=== PATIENT | female | born 1930 | race African-American/Black ===

== ENCOUNTER 2018-12-27 09:39 | Inpatient (IN) ==
[2018-12-27] MEDS ORDERED: ALBUTEROL 2.5 MG/3 ML NEB RESP TX STA (10:01)
[2018-12-27] MEDS ORDERED: SODIUM CHLORIDE 0.9% 500 ML IV STA (10:01)
[2018-12-27] MEDS ORDERED: PIPERACILLIN/TAZOBACTAM 3,375 MG in SODIUM CHLORIDE 0.9% 100 ML IV STA (10:18)
[2018-12-27 10:25] LABS: Basophils % 0.2 % (0.0-0.8); Eosinophils % 0.2 % (0.00-10.9); Hematocrit 39.3 VOL% (35.7-47.0); Hemoglobin 11.2 GM/DL (12.0-16.0); Immature Granulocytes % 0.3 %; Immature Granulocytes Absolute 0.03 #; Lymphocytes # 0.6 10*3/uL (1.4-4.0); Mean Corpuscular HGB Conc 28.5 GM/DL (32-36); Mean Corpuscular Volume 90.6 FL (87-102); Mean Platelet Volume 11.3 FL (9.6-12.0); Monocytes % 7.5 % (1.7-12.7); Neutrophils % 85.8 % (38.7-73.9); Platelet Count 160 T/CUMM (130-400); Red Blood Count 4.34 MC/CUMM (3.8-5.5); Red Cell Distribution Width 17.1 % (9.3-17.3); White Blood Count 9.9 T/CUMM (4-12)
[2018-12-27 10:35] LABS: INR 1.1; Partial Thromboplastin Time 28.3 SECS (0-40)
[2018-12-27 10:40] LABS: Hypochromasia 1+; Microcytosis 1+; Ovalocytes Slight
[2018-12-27 10:41] LABS: Platelet Estimate Adequate
[2018-12-27 10:42] LABS: Amorphous Crystals,Urine Occasional /HPF (Few); Apearance,Urine Slightly Hazy (Clear); Bilirubin,Urine Negative (Negative); Blood, Urine Negative (Negative); Glucose,Urine (UA) Negative (Negative); Hyaline Casts,Urine 6 /LPF (0-3); Ketones,Urine Negative (Negative); Nitrite,Urine Negative (Negative); Protein,Urine >=500 MG/DL; Squamous Epithelial Cell,Urine Occasional /HPF (0-10); Urine Color Yellow (Yellow); Urine Specific Gravity 1.015 (1.001-1.035); Urine Urobilinogen < 2.0 EU/DL (0.2-1.0); WBC,Urine 1 /HPF (0-6)
[2018-12-27 10:46] LABS: Albumin 3.7 G/DL (3.4-5.0); Bilirubin,Total 0.7 MG/DL (0.2-1.0); Calcium 8.8 MG/DL (8.5-10.1); Osmolality,Calculated 285.8 MOS/KG (273-304); Total Protein 7.4 G/DL (6.4-8.3)
[2018-12-27] MEDS ORDERED: ACETAMINOPHEN 325 MG TABLET PO PRN (12:15)
[2018-12-27] MEDS ORDERED: guaiFENesin/DM ER 600-30 MG TABLET PO PRN (12:15)
[2018-12-27] MEDS ORDERED: ONDANSETRON 4 MG/2 ML VIAL IV PRN (12:15)
[2018-12-27 13:33] LABS: Risk Ratio 1.51; Thyroid Stimulating Hormone 1.46 uIU/ml (0.358-3.74); VLDL CHOLESTEROL 9.8 MG/DL
[2018-12-27] MEDS: MELATONIN 3 MG TABLET PO SCH (21:21)
[2018-12-27] MEDS: traZODone 50 MG TABLET PO SCH (21:22)
[2018-12-27] MEDS: ROSUVASTATIN 10 MG TABLET PO SCH (21:22)
[2018-12-27] MEDS: APIXABAN 5 MG TABLET PO SCH (21:22)
[2018-12-27] MEDS: DONEPEZIL 10 MG TABLET PO SCH (21:22)
[2018-12-27] MEDS: PIPERACILLIN/TAZOBACTAM 3,375 MG in SODIUM CHLORIDE 0.9% 100 ML IV SCH (22:16)
[2018-12-27] MEDS: DOCUSATE SODIUM 100 MG CAPSULE PO SCH (22:17)
[2018-12-27] MEDS: CARVEDILOL 6.25 MG TABLET PO SCH (22:17)
[2018-12-28] MEDS: PIPERACILLIN/TAZOBACTAM 3,375 MG in SODIUM CHLORIDE 0.9% 100 ML IV SCH ×3 (05:03→21:02)
[2018-12-28 05:50] LABS: Basophils % 0.3 % (0.0-0.8); Eosinophils # 0.1 10*3/uL (0.0-0.87); Hematocrit 34.2 VOL% (35.7-47.0); Immature Granulocytes % 0.3 %; Immature Granulocytes Absolute 0.02 #; Lymphocytes # 0.5 10*3/uL (1.4-4.0); Lymphocytes % 7.5 % (21.3-54.2); Mean Corpuscular HGB Conc 28.7 GM/DL (32-36); Mean Corpuscular Volume 90.2 FL (87-102); Mean Platelet Volume 10.4 FL (9.6-12.0); Monocytes % 5.6 % (1.7-12.7); Neutrophils % 85.3 % (38.7-73.9); Platelet Count 119 T/CUMM (130-400); Red Blood Count 3.79 MC/CUMM (3.8-5.5); Red Cell Distribution Width 16.9 % (9.3-17.3)
[2018-12-28 06:18] LABS: Albumin 2.9 G/DL (3.4-5.0); Calcium 8.5 MG/DL (8.5-10.1); Osmolality,Calculated 287.6 MOS/KG (273-304); Total Protein 6.6 G/DL (6.4-8.3)
[2018-12-28 06:25] LABS: Hemoglobin 9.8 GM/DL (12.0-16.0)
[2018-12-28 06:26] LABS: Hypochromasia 1+
[2018-12-28 06:27] LABS: Microcytosis Slight; Platelet Estimate Decreased
[2018-12-28] MEDS: amLODIPine 10 MG TABLET PO SCH (08:56)
[2018-12-28] MEDS: PANTOPRAZOLE 40 MG TABLET PO SCH (08:56)
[2018-12-28] MEDS: SERTRALINE 50 MG TABLET PO SCH (08:56)
[2018-12-28] MEDS: DOCUSATE SODIUM 100 MG CAPSULE PO SCH ×2 (08:56→21:59)
[2018-12-28] MEDS: APIXABAN 5 MG TABLET PO SCH ×2 (08:56→21:59)
[2018-12-28] MEDS: CARVEDILOL 6.25 MG TABLET PO SCH ×2 (08:56→21:59)
[2018-12-28] MEDS: FUROSEMIDE 20 MG TABLET PO SCH ×2 (08:56→17:19)
[2018-12-28] MEDS: POLYETHYLENE GLYCOL POWDER 17 GM PACK PO SCH (08:56)
[2018-12-28] MEDS: hydrALAZINE 20 MG/1 ML VIAL IV PRN (17:19)
[2018-12-28] MEDS: MELATONIN 3 MG TABLET PO SCH (21:58)
[2018-12-28] MEDS: ROSUVASTATIN 10 MG TABLET PO SCH (21:59)
[2018-12-28] MEDS: DONEPEZIL 10 MG TABLET PO SCH (21:59)
[2018-12-28] MEDS: traZODone 50 MG TABLET PO SCH (21:59)
[2018-12-29] MEDS: PIPERACILLIN/TAZOBACTAM 3,375 MG in SODIUM CHLORIDE 0.9% 100 ML IV SCH ×3 (04:24→22:46)
[2018-12-29 05:50] LABS: Basophils % 0.4 % (0.0-0.8); Eosinophils % 0.6 % (0.00-10.9); Hematocrit 34.1 VOL% (35.7-47.0); Hemoglobin 9.9 GM/DL (12.0-16.0); Immature Granulocytes % 0.4 %; Immature Granulocytes Absolute 0.02 #; Lymphocytes # 0.5 10*3/uL (1.4-4.0); Lymphocytes % 9.4 % (21.3-54.2); Mean Corpuscular Volume 89.5 FL (87-102); Mean Platelet Volume 11.7 FL (9.6-12.0); Monocytes % 8.3 % (1.7-12.7); Neutrophils % 80.9 % (38.7-73.9); Platelet Count 142 T/CUMM (130-400); Red Blood Count 3.81 MC/CUMM (3.8-5.5); Red Cell Distribution Width 16.6 % (9.3-17.3); White Blood Count 5.3 T/CUMM (4-12)
[2018-12-29 06:14] LABS: Albumin 2.8 G/DL (3.4-5.0); Bilirubin,Total 0.8 MG/DL (0.2-1.0); Calcium 8.8 MG/DL (8.5-10.1); Osmolality,Calculated 283.8 MOS/KG (273-304); Total Protein 6.7 G/DL (6.4-8.3)
[2018-12-29] MEDS: DOCUSATE SODIUM 100 MG CAPSULE PO SCH ×3 (09:35→22:54)
[2018-12-29] MEDS: POLYETHYLENE GLYCOL POWDER 17 GM PACK PO SCH (09:35)
[2018-12-29] MEDS: amLODIPine 10 MG TABLET PO SCH (09:37)
[2018-12-29] MEDS: FUROSEMIDE 20 MG TABLET PO SCH ×2 (09:37→16:28)
[2018-12-29] MEDS: APIXABAN 5 MG TABLET PO SCH ×2 (09:38→22:45)
[2018-12-29] MEDS: SERTRALINE 50 MG TABLET PO SCH (09:38)
[2018-12-29] MEDS: PANTOPRAZOLE 40 MG TABLET PO SCH (09:38)
[2018-12-29] MEDS: CARVEDILOL 6.25 MG TABLET PO SCH ×2 (09:38→22:44)
[2018-12-29] MEDS ORDERED: AZITHROMYCIN 250 MG TABLET PO ONE (15:51)
[2018-12-29] MEDS: DONEPEZIL 10 MG TABLET PO SCH (22:44)
[2018-12-29] MEDS: traZODone 50 MG TABLET PO SCH (22:44)
[2018-12-29] MEDS: ROSUVASTATIN 10 MG TABLET PO SCH (22:44)
[2018-12-29] MEDS: MELATONIN 3 MG TABLET PO SCH (22:45)
[2018-12-30] MEDS: hydrALAZINE 20 MG/1 ML VIAL IV PRN (04:16)
[2018-12-30] MEDS: PIPERACILLIN/TAZOBACTAM 3,375 MG in SODIUM CHLORIDE 0.9% 100 ML IV SCH ×3 (04:16→20:56)
[2018-12-30 07:20] LABS: Albumin 2.8 G/DL (3.4-5.0); Calcium 8.4 MG/DL (8.5-10.1); Total Protein 6.8 G/DL (6.4-8.3)
[2018-12-30 07:24] LABS: Basophils % 0.7 % (0.0-0.8); Eosinophils % 0.9 % (0.00-10.9); Hematocrit 36.8 VOL% (35.7-47.0); Immature Granulocytes % 0.4 %; Immature Granulocytes Absolute 0.02 #; Lymphocytes # 0.7 10*3/uL (1.4-4.0); Lymphocytes % 15.3 % (21.3-54.2); Mean Corpuscular HGB Conc 29.9 GM/DL (32-36); Mean Platelet Volume 11.3 FL (9.6-12.0); Monocytes % 9.8 % (1.7-12.7); Neutrophils % 72.9 % (38.7-73.9); Platelet Count 153 T/CUMM (130-400); Red Blood Count 4.18 MC/CUMM (3.8-5.5); Red Cell Distribution Width 16.1 % (9.3-17.3); White Blood Count 4.6 T/CUMM (4-12)
[2018-12-30 09:39] LABS: Albumin 2.8 G/DL (3.4-5.0); Bilirubin,Total 0.7 MG/DL (0.2-1.0); Calcium 8.5 MG/DL (8.5-10.1); Osmolality,Calculated 286.7 MOS/KG (273-304); Total Protein 6.7 G/DL (6.4-8.3)
[2018-12-30 09:49] LABS: Basophils % 0.4 % (0.0-0.8); Eosinophils % 0.7 % (0.00-10.9); Hematocrit 36.2 VOL% (35.7-47.0); Hemoglobin 10.7 GM/DL (12.0-16.0); Immature Granulocytes % 0.4 %; Immature Granulocytes Absolute 0.02 #; Lymphocytes # 0.5 10*3/uL (1.4-4.0); Lymphocytes % 10.1 % (21.3-54.2); Mean Corpuscular HGB Conc 29.6 GM/DL (32-36); Mean Corpuscular Volume 87.7 FL (87-102); Mean Platelet Volume 10.6 FL (9.6-12.0); Monocytes % 6.4 % (1.7-12.7); Platelet Count 154 T/CUMM (130-400); Red Blood Count 4.13 MC/CUMM (3.8-5.5); Red Cell Distribution Width 16.1 % (9.3-17.3); White Blood Count 4.5 T/CUMM (4-12)
[2018-12-30] MEDS: amLODIPine 10 MG TABLET PO SCH (09:51)
[2018-12-30] MEDS: CARVEDILOL 6.25 MG TABLET PO SCH ×2 (09:51→21:00)
[2018-12-30] MEDS: PANTOPRAZOLE 40 MG TABLET PO SCH (09:51)
[2018-12-30] MEDS: APIXABAN 5 MG TABLET PO SCH ×2 (09:51→21:00)
[2018-12-30] MEDS: FUROSEMIDE 20 MG TABLET PO SCH ×2 (09:51→16:31)
[2018-12-30] MEDS: POTASSIUM CHLORIDE 20 MEQ TABLET PO PRN ×4 (09:51→18:15)
[2018-12-30] MEDS: SERTRALINE 50 MG TABLET PO SCH (09:52)
[2018-12-30] MEDS: POLYETHYLENE GLYCOL POWDER 17 GM PACK PO SCH (09:52)
[2018-12-30] MEDS: DOCUSATE SODIUM 100 MG CAPSULE PO SCH ×2 (09:52→21:00)
[2018-12-30 09:58] LABS: Platelet Estimate Normal
[2018-12-30] MEDS ORDERED: FUROSEMIDE 40 MG/4 ML VIAL IV ONE (10:30)
[2018-12-30 10:53] LABS: INR 1.1; Partial Thromboplastin Time 27.7 SECS (0-40)
[2018-12-30] MEDS: SODIUM CHLORIDE 0.9% 1,000 ML IV SCH (14:24)
[2018-12-30] MEDS: AZITHROMYCIN 250 MG TABLET PO SCH (16:31)
[2018-12-30] MEDS: DONEPEZIL 10 MG TABLET PO SCH (21:00)
[2018-12-30] MEDS: ROSUVASTATIN 10 MG TABLET PO SCH (21:00)
[2018-12-30] MEDS: traZODone 50 MG TABLET PO SCH (21:00)
[2018-12-30] MEDS: MELATONIN 3 MG TABLET PO SCH (21:00)
[2018-12-31 01:04] LABS: Basophils % 0.4 % (0.0-0.8); Eosinophils # 0.1 10*3/uL (0.0-0.87); Eosinophils % 1.3 % (0.00-10.9); Hematocrit 35.1 VOL% (35.7-47.0); Hemoglobin 10.5 GM/DL (12.0-16.0); Immature Granulocytes % 0.4 %; Immature Granulocytes Absolute 0.02 #; Lymphocytes # 0.7 10*3/uL (1.4-4.0); Lymphocytes % 16.2 % (21.3-54.2); Mean Corpuscular HGB Conc 29.9 GM/DL (32-36); Mean Corpuscular Volume 87.5 FL (87-102); Mean Platelet Volume 10.5 FL (9.6-12.0); Monocytes % 12.4 % (1.7-12.7); Neutrophils % 69.3 % (38.7-73.9); Platelet Count 155 T/CUMM (130-400); Red Blood Count 4.01 MC/CUMM (3.8-5.5); Red Cell Distribution Width 15.9 % (9.3-17.3); White Blood Count 4.5 T/CUMM (4-12)
[2018-12-31 01:25] LABS: Albumin 2.7 G/DL (3.4-5.0); Bilirubin,Total 0.8 MG/DL (0.2-1.0); Calcium 8.3 MG/DL (8.5-10.1); Osmolality,Calculated 282.8 MOS/KG (273-304); Total Protein 6.5 G/DL (6.4-8.3)
[2018-12-31] MEDS: POTASSIUM CHLORIDE RIDER 10 MEQ in PREMIX 1 EACH IV PRN ×4 (03:04→12:04)
[2018-12-31] MEDS: PIPERACILLIN/TAZOBACTAM 3,375 MG in SODIUM CHLORIDE 0.9% 100 ML IV SCH ×3 (05:39→20:06)
[2018-12-31] MEDS: FUROSEMIDE 20 MG TABLET PO SCH ×2 (08:24→16:10)
[2018-12-31] MEDS: PANTOPRAZOLE 40 MG TABLET PO SCH (08:24)
[2018-12-31] MEDS: POLYETHYLENE GLYCOL POWDER 17 GM PACK PO SCH (08:24)
[2018-12-31] MEDS: amLODIPine 10 MG TABLET PO SCH (08:24)
[2018-12-31] MEDS: AZITHROMYCIN 250 MG TABLET PO SCH (08:24)
[2018-12-31] MEDS: SERTRALINE 50 MG TABLET PO SCH (08:24)
[2018-12-31] MEDS: APIXABAN 5 MG TABLET PO SCH ×2 (08:24→20:06)
[2018-12-31] MEDS: DOCUSATE SODIUM 100 MG CAPSULE PO SCH ×2 (08:24→20:07)
[2018-12-31] MEDS: CARVEDILOL 6.25 MG TABLET PO SCH ×2 (08:24→20:06)
[2018-12-31] MEDS: SODIUM CHLORIDE 0.9% 1,000 ML IV SCH (10:41)
[2018-12-31] MEDS: LOSARTAN 25 MG TABLET PO SCH (12:04)
[2018-12-31] MEDS: POTASSIUM CHLORIDE 20 MEQ TABLET PO PRN ×3 (17:45→22:20)
[2018-12-31] MEDS: MELATONIN 3 MG TABLET PO SCH (20:06)
[2018-12-31] MEDS: DONEPEZIL 10 MG TABLET PO SCH (20:06)
[2018-12-31] MEDS: ROSUVASTATIN 10 MG TABLET PO SCH (20:06)
[2018-12-31] MEDS: traZODone 50 MG TABLET PO SCH (20:06)
[2019-01-01] MEDS: PIPERACILLIN/TAZOBACTAM 3,375 MG in SODIUM CHLORIDE 0.9% 100 ML IV SCH ×2 (04:35→12:21)
[2019-01-01] MEDS: DOCUSATE SODIUM 100 MG CAPSULE PO SCH (08:13)
[2019-01-01] MEDS: POLYETHYLENE GLYCOL POWDER 17 GM PACK PO SCH (08:13)
[2019-01-01] MEDS: APIXABAN 5 MG TABLET PO SCH (08:13)
[2019-01-01] MEDS: CARVEDILOL 6.25 MG TABLET PO SCH (08:13)
[2019-01-01] MEDS: amLODIPine 10 MG TABLET PO SCH (08:13)
[2019-01-01] MEDS: FUROSEMIDE 20 MG TABLET PO SCH (08:13)
[2019-01-01] MEDS: PANTOPRAZOLE 40 MG TABLET PO SCH (08:13)
[2019-01-01] MEDS: AZITHROMYCIN 250 MG TABLET PO SCH (08:13)
[2019-01-01] MEDS: LOSARTAN 25 MG TABLET PO SCH (08:13)
[2019-01-01] MEDS: SERTRALINE 50 MG TABLET PO SCH (08:13)
[2019-01-01] MEDS: SODIUM CHLORIDE 0.9% 1,000 ML IV SCH (11:56)
[2019-01-01 13:07] VITALS: BP 138/76
== END 2019-01-01 15:18 | DRG 193 ==
LOC: EDBD → EDUNIT# → N.ED 09:39 → SUATTDRO 11:43 → N.EDINP 11:43 → N.5E 13:04
PROVIDERS: ADMIT Internal Medicine Nephrology; ATTEND Internal Medicine